=== PATIENT | female | born 1980 | race Caucasian/White ===

== ENCOUNTER 2021-09-07 11:05 | Emergency (ER) | payer OTHER ==
[2021-09-07] MEDS ORDERED: Zofran 4 MG/2 ML VIAL IV ONE (11:40)
[2021-09-07] MEDS ORDERED: Sodium Chloride 0.9% 1000 ML 1,000 ML IV STA (11:40)
[2021-09-07] MEDS ORDERED: Zofran 4 MG/2 ML VIAL ONE (11:49)
[2021-09-07] MEDS ORDERED: Sodium Chloride 0.9% 1000 ML 1,000 ML ONE (11:49)
--- NOTE | 2021-09-07 11:49 | ERPHSYRPT ---
- History of Present Illness Time Seen by Provider: 09/07/21 11:30 Source: patient Exam Limitations: no limitations Patient Subjective Stated Complaint: Pt states "I am vomiting, have a headache, belly pain, body aches." Triage Nursing Assessment: Pt presented alert and oriented X 3, skin pwd Pt ambulates with an upright steady gait, able to speak in clear full sentences pt in no aprpaent respiratory distress. Physician History: Patient is a 41-year-old female presents to emergency department for evaluation of nausea vomiting abdominal pain headache myalgias. Patient just returned from [place]. Patient is not vaccinated against COVID. Symptoms have been ongoing for approximately 1 day. Symptoms are mild to moderate in intensity. No specific worsening or improving factors. Vomit is nonbloody nonbilious. No trauma. No fever. Symptoms are moderate in intensity. No specific worsening improving factors. Patient otherwise healthy. She voices no other complaints or concerns at this time. Timing/Duration: today Severity: moderate Modifying Factors: Improves With: nothing Associated Symptoms: No shortness of breath, No diaphoresis, No cough, No fever, No loss of appetite, No syncope, No seizure, No weakness Allergies/Adverse Reactions: No Known Drug Allergies Allergy (Verified 09/07/21 11:18) Hx Tetanus, Diphtheria Vaccination/Date Given: Yes Hx Influenza Vaccination/Date Given: No Hx Pneumococcal Vaccination/Date Given: No Immunizations Up to Date: Yes Travel Risk - International Travel Have you traveled outside of the country in past 3 weeks: No - Coronavirus Screening Are you exhibiting any of the following symptoms?: Yes Symptoms: Vomiting/Diarrhea, Headaches/Body Aches/Fatigue Close contact with a COVID-19 positive Pt in past 14-21 Days: No - Vaccine Status Have you recieved a Covid-19 vaccination: No - Review of Systems Constitutional: No Symptoms, No Fever, No Chills Eyes: No Symptoms Ears, Nose, & Throat: No Symptoms Respiratory: No Symptoms, No Cough, No Dyspnea Cardiac: No Symptoms, No Chest Pain, No Edema, No Syncope Abdominal/Gastrointestinal: No Symptoms, No Abdominal Pain, No Nausea, No Vomiting, No Diarrhea Genitourinary Symptoms: No Symptoms, No Dysuria Musculoskeletal: No Symptoms, No Back Pain, No Neck Pain Skin: No Symptoms, No Rash Neurological: No Symptoms, No Dizziness, No Focal Weakness, No Sensory Changes Psychological: No Symptoms Endocrine: No Symptoms Hematologic/Lymphatic: No Symptoms Immunological/Allergic: No Symptoms All Other Systems: Reviewed and Negative - Past Medical History Pertinent Past Medical History: No - Past Surgical History Past Surgical History: Yes Other Surgical History: tubal - Social History Smoking Status: Former smoker Exposure to second hand smoke: Yes Drug Use: none Patient Lives Alone: No - Female History Hx Last Menstrual Period: 08/25/2021 Hx Now: No - Nursing Vital Signs Nursing Vital Signs: Initial Vital Signs Temperature 97.8 F 09/07/21 11:13 Pulse Rate 75 09/07/21 11:13 Respiratory Rate 20 09/07/21 11:13 Blood Pressure 118/71 09/07/21 11:13 O2 Sat by Pulse Oximetry 97 09/07/21 11:13 Pain Scale Pain Intensity 5 - Physical Exam General Appearance: no apparent distress, alert Eye Exam: PERRL/EOMI, eyes nml inspection Ears, Nose, Throat Exam: normal ENT inspection, TMs normal, pharynx normal, moist mucous membranes Neck Exam: normal inspection, non-tender, supple, full range of motion Respiratory Exam: normal breath sounds, chest tenderness, lungs clear, airway intact, No respiratory distress Cardiovascular Exam: regular rate/rhythm, normal heart sounds, normal peripheral pulses Gastrointestinal/Abdomen Exam: soft, normal bowel sounds, No tenderness, No mass Back Exam: normal inspection, normal range of motion, No CVA tenderness, No vert ebral tenderness Extremity Exam: normal inspection, normal range of motion, pelvis stable Neurologic Exam: alert, oriented x 3, cooperative, normal mood/affect, nml cerebellar function, nml station & gait, sensation nml, No motor deficits Skin Exam: normal color, warm, dry, No rash Lymphatic Exam: No adenopathy SpO2 Interpretation: normal SpO2: 97 O2 Delivery: Room Air - Course Nursing assessment & vital signs reviewed: No - CT Exams Abdomen/Pelvis CT Interpretation: Tele-radiologist Report (Left ovarian cyst, prominent uterus, hematuria, colon lithiasis, aortoiliac calcifications spine arthritis fecal stasis.) - Radiology Ultrasound Exam Gallbladder Ultrasound: discussed w/radiologist (Ultrasound gallbladder reveals cholelithiasis no cholecystitis) Pelvis Ultrasound: discussed w/radiologist (Ultrasound pelvis reveals a uterine fibroid.) Ordered Tests: Active Orders 24 hr Category Date Time Status IV Insertion STAT Care 09/07/21 11:40 Active ABDOMEN AND PELVIS W/0 CONTRAS [CT] Stat Exams 09/07/21 11:40 Completed GALLBLADDER [US] Stat Exams 09/07/21 14:40 Taken PELVIC [US] Stat Exams 09/07/21 14:40 Taken CBC W DIFF Stat Lab 09/07/21 11:30 Completed CMP Stat Lab 09/07/21 11:30 Completed CULTURE,URINE Stat Lab 09/07/21 11:45 Received HCG,QUALITATIVE URINE Stat Lab 09/07/21 11:47 Completed LIPASE Stat Lab 09/07/21 11:30 Completed TROPONIN Q3H Lab 09/07/21 11:30 Completed TROPONIN Q3H Lab 09/07/21 15:00 Completed TROPONIN Q3H Lab 09/07/21 17:45 Ordered TROPONIN Q3H Lab 09/07/21 20:45 Ordered TROPONIN Q3H Lab 09/07/21 23:45 Ordered UA W/RFX CULTURE Stat Lab 09/07/21 11:45 Completed Medication Summary Discontinued Medications Generic Name Dose Route Start Last Admin Trade Name Freq PRN Reason Stop Dose Admin Acetaminophen 975 mg 09/07/21 14:38 09/07/21 14:44 Acetaminophen 325 Mg Tablet PO 09/07/21 14:39 975 mg STAT STA Administration Acetaminophen Confirm 09/07/21 14:43 Acetaminophen 325 Mg Tablet Administered 09/07/21 14:44 Dose 975 mg .ROUTE .STK-MED ONE Sodium Chloride 1,000 mls @ 999 mls/hr 09/07/21 11:40 09/07/21 13:00 Sodium Chloride 0.9% 1000 Ml IV 09/07/21 12:40 Infused .Q1H1M STA Infusion Sodium Chloride Confirm 09/07/21 11:49 Sodium Chloride 0.9% 1000 Ml Administered 09/07/21 11:50 Dose 1,000 mls @ ud .ROUTE .STK-MED ONE Nicardipine HCl 25 mg/ Sodium 250 mls @ 0 mls/hr 09/07/21 15:45 Chloride IV 10/07/21 15:44 .Q0M PRN TITRATE FOR BLOOD PRESSURE Protocol Titrate Ondansetron HCl 4 mg 09/07/21 11:40 09/07/21 11:53 Ondansetron Hcl 4 Mg/2 Ml Vial IV 09/07/21 11:41 4 mg STAT ONE Administration Ondansetron HCl Confirm 09/07/21 11:49 Ondansetron Hcl 4 Mg/2 Ml Vial Administered 09/07/21 11:50 Dose 4 mg .ROUTE .STK-MED ONE Lab/Rad Data: Laboratory Result Diagrams 09/07/21 11:30 09/07/21 11:30 Laboratory Results 09/07/21 09/07/21 09/07/21 Range/Units 15:00 11:47 11:45 WBC (4.0-10.5) K/mm3 RBC (4.1-5.4) M/mm3 Hgb (12.0-16.0) gm/dl Hct (35-47) % MCV (78-100) fl MCH (26-32) pg MCHC (32-36) g/dl RDW (11.5-14.0) % Plt Count (150-450) K/mm3 MPV (7.5-11.0) fl Gran % (36.0-66.0) % Eos # (Auto) (0-0.5) Absolute Lymphs (auto) (1.0-4.6) Absolute Monos (auto) (0.0-1.3) Lymphocytes % (24.0-44.0) % Monocytes % (0.0-12.0) % Eosinophils % (0.00-5.0) % Basophils % (0.0-0.4) % Absolute Granulocytes (1.4-6.9) Basophils # (0-0.4) Sodium (137-145) mmol/L Potassium (3.5-5.1) mmol/L Chloride (98-107) mmol/L Carbon Dioxide (22-30) mmol/L Anion Gap (5-15) MEQ/L BUN (7-17) mg/dL Creatinine (0.52-1.04) mg/dL Estimated GFR ML/MIN Glucose (74-106) mg/dL Calcium (8.4-10.2) mg/dL Total Bilirubin (0.2-1.3) mg/dL AST (14-36) U/L ALT (0-35) U/L Alkaline Phosphatase (38-126) U/L Troponin I < 0.012 (0.000-0.034) ng/mL Serum Total Protein (6.3-8.2) g/dL Albumin (3.5-5.0) g/dL Lipase (23-300) U/L Urinalys Dipstick Clnc MAIN LAB Urine Color YELLOW (YELLOW) Urine Appearance SLIGHTLY CLOUDY (CLEAR) Urine pH 5.0 (5-6) Ur Specific Marceline >=1.030 (1.005-1.025) POC Urine Protein Conf 30 (Negative) Urine Ketones NEGATIVE (NEGATIVE) Urine Nitrite NEGATIVE (NEGATIVE) Urine Bilirubin NEGATIVE (NEGATIVE) Urine Urobilinogen 0.2 (0-1) mg/dL Urine Leukocytes NEGATIVE (NEGATIVE) Urine WBC (Auto) 3-5 (0-5) /HPF Urine RBC (Auto) 26-50 (0-2) /HPF U Epithel Cells (Auto) RARE (FEW) /HPF Urine Bacteria (Auto) RARE (NEGATIVE) /HPF Urine RBC LARGE (0-5) Javier/ul Urine Mucus (Auto) MODERATE (NEGATIVE) /HPF Ur Culture Indicated? YES Urine Glucose NEGATIVE (NEGATIVE) mg/dL Urine HCG, Qual NEGATIVE (Negative) Influenza Type A Ag (NEGATIVE) Influenza Type B Ag (NEGATIVE) RSV (PCR) (Negative) SARS-CoV-2 (PCR) (NEGATIVE) 09/07/21 09/07/21 09/07/21 Range/Units 11:45 11:30 11:30 WBC (4.0-10.5) K/mm3 RBC (4.1-5.4) M/mm3 Hgb (12.0-16.0) gm/dl Hct (35-47) % MCV (78-100) fl MCH (26-32) pg MCHC (32-36) g/dl RDW (11.5-14.0) % Plt Count (150-450) K/mm3 MPV (7.5-11.0) fl Gran % (36.0-66.0) % Eos # (Auto) (0-0.5) Absolute Lymphs (auto) (1.0-4.6) Absolute Monos (auto) (0.0-1.3) Lymphocytes % (24.0-44.0) % Monocytes % (0.0-12.0) % Eosinophils % (0.00-5.0) % Basophils % (0.0-0.4) % Absolute Granulocytes (1.4-6.9) Basophils # (0-0.4) Sodium 138 (137-145) mmol/L Potassium 4.4 (3.5-5.1) mmol/L Chloride 105 (98-107) mmol/L Carbon Dioxide 23 (22-30) mmol/L Anion Gap 14.4 (5-15) MEQ/L BUN 16 (7-17) mg/dL Creatinine 0.51 L (0.52-1.04) mg/dL Estimated GFR > 60.0 ML/MIN Glucose 97 (74-106) mg/dL Calcium 9.3 (8.4-10.2) mg/dL Total Bilirubin 0.60 (0.2-1.3) mg/dL AST 27 (14-36) U/L ALT 23 (0-35) U/L Alkaline Phosphatase 56 (38-126) U/L Troponin I < 0.012 (0.000-0.034) ng/mL Serum Total Protein 7.2 (6.3-8.2) g/dL Albumin 4.2 (3.5-5.0) g/dL Lipase 190 (23-300) U/L Urinalys Dipstick Clnc Urine Color (YELLOW) Urine Appearance (CLEAR) Urine pH (5-6) Ur Specific Marceline (1.005-1.025) POC Urine Protein Conf (Negative) Urine Ketones (NEGATIVE) Urine Nitrite (NEGATIVE) Urine Bilirubin (NEGATIVE) Urine Urobilinogen (0-1) mg/dL Urine Leukocytes (NEGATIVE) Urine WBC (Auto) (0-5) /HPF Urine RBC (Auto) (0-2) /HPF U Epithel Cells (Auto) (FEW) /HPF Urine Bacteria (Auto) (NEGATIVE) /HPF Urine RBC (0-5) Javier/ul Urine Mucus (Auto) (NEGATIVE) /HPF Ur Culture Indicated? Urine Glucose (NEGATIVE) mg/dL Urine HCG, Qual (Negative) Influenza Type A Ag NEGATIVE (NEGATIVE) Influenza Type B Ag NEGATIVE (NEGATIVE) RSV (PCR) NEGATIVE (Negative) SARS-CoV-2 (PCR) NEGATIVE (NEGATIVE) 09/07/21 Range/Units 11:30 WBC 5.9 (4.0-10.5) K/mm3 RBC 4.27 (4.1-5.4) M/mm3 Hgb 12.9 (12.0-16.0) gm/dl Hct 39.9 (35-47) % MCV 93.4 (78-100) fl MCH 30.2 (26-32) pg MCHC 32.3 (32-36) g/dl RDW 13.2 (11.5-14.0) % Plt Count 264 (150-450) K/mm3 MPV 9.7 (7.5-11.0) fl Gran % 65.6 (36.0-66.0) % Eos # (Auto) 0.12 (0-0.5) Absolute Lymphs (auto) 1.28 (1.0-4.6) Absolute Monos (auto) 0.62 (0.0-1.3) Lymphocytes % 21.6 L (24.0-44.0) % Monocytes % 10.5 (0.0-12.0) % Eosinophils % 2.0 (0.00-5.0) % Basophils % 0.3 (0.0-0.4) % Absolute Granulocytes 3.88 (1.4-6.9) Basophils # 0.02 (0-0.4) Sodium (137-145) mmol/L Potassium (3.5-5.1) mmol/L Chloride (98-107) mmol/L Carbon Dioxide (22-30) mmol/L Anion Gap (5-15) MEQ/L BUN (7-17) mg/dL Creatinine (0.52-1.04) mg/dL Estimated GFR ML/MIN Glucose (74-106) mg/dL Calcium (8.4-10.2) mg/dL Total Bilirubin (0.2-1.3) mg/dL AST (14-36) U/L ALT (0-35) U/L Alkaline Phosphatase (38-126) U/L Troponin I (0.000-0.034) ng/mL Serum Total Protein (6.3-8.2) g/dL Albumin (3.5-5.0) g/dL Lipase (23-300) U/L Urinalys Dipstick Clnc Urine Color (YELLOW) Urine Appearance (CLEAR) Urine pH (5-6) Ur Specific Marceline (1.005-1.025) POC Urine Protein Conf (Negative) Urine Ketones (NEGATIVE) Urine Nitrite (NEGATIVE) Urine Bilirubin (NEGATIVE) Urine Urobilinogen (0-1) mg/dL Urine Leukocytes (NEGATIVE) Urine WBC (Auto) (0-5) /HPF Urine RBC (Auto) (0-2) /HPF U Epithel Cells (Auto) (FEW) /HPF Urine Bacteria (Auto) (NEGATIVE) /HPF Urine RBC (0-5) Javier/ul Urine Mucus (Auto) (NEGATIVE) /HPF Ur Culture Indicated? Urine Glucose (NEGATIVE) mg/dL Urine HCG, Qual (Negative) Influenza Type A Ag (NEGATIVE) Influenza Type B Ag (NEGATIVE) RSV (PCR) (Negative) SARS-CoV-2 (PCR) (NEGATIVE) - Progress Progress: improved Progress Note: Urinalysis reveals hematuria. Patient states she is not currently on her menstrual period CT abdomen pelvis reveals a prominent uterus. Ultrasound of uterus and gallbladder recommended by radiologist.We ordered ultrasound of the uterus and gallbladder. Results pending. 09/07/21 14:42 Counseled pt/family regarding: lab results, diagnosis, need for follow-up, rad results - Departure Departure Disposition: Home Clinical Impression: Left ovarian cyst, Prominent uterus, Hematuria, Cholelithiasis, Aortoiliac calcifications, Arthritis of spine, Fecal stasis, Uterine fibroid, Abdominal pain, UTI (urinary tract infection) Condition: Stable Critical Care Time: No Referrals: MILI WALL [Primary Care Provider] - Follow up/PCP as directed MAGI ROY [ACTIVE STAFF] - Follow up/PCP as directed Additional Instructions: Discharge/Care Plan JUAN GONZALEZ was seen on 09/07/21 in the Emergency Room. The patient was counseled regarding Diagnosis,Lab results, Imaging studies, need for follow up and when to return to the Emergency Room. Prescriptions given: Discharge Note I have spoken with the patient and/or caregivers. I have explained the patient's condition, diagnosis and treatment plan based on the information available to me at this time. I have answered the patient's and/or caregiver's questions and addressed any concerns. The patient and/or caregivers have as good understanding of the patient's diagnosis, condition and treatment plan as can be expected at this point. The vital signs have been stable. The patient's condition is stable and appropriate for discharge from the emergency department. The patient will pursue further outpatient evaluation with the primary care physician or other designated or consulting physician as outlined in the discharge instructions. The patient and/or caregivers are agreeable to this plan of care and follow-up instructions have been explained in detail. The patient and/or caregivers have received these instruction. The patient/and or caregivers are aware that any significant change in condition or worsening of symptoms should prompt an immediate return to this or the closest emergency department or call 911. Prescriptions: Nitrofurantoin Macro 100 mg [Macrobid 100MG Capsule] 100 mg PO BID 7 Days #14 cap
[2021-09-07 11:52] LABS: Absolute Neutrophil Ct (ANC) 3.88 (1.4-6.9); Basophil (Absolute #) 0.02 (0-0.4); Eosinophil (Absolute #) 0.12 (0-0.5); Hematocrit 39.9 % (35-47); Hemoglobin 12.9 gm/dl (12.0-16.0); Lymphocyte (Absolute #) 1.28 (1.0-4.6); Lymphocytes % 21.6 % (24.0-44.0); Mean Cell Volume 93.4 fl (78-100); Mean Corpuscular Hemoglobin 30.2 pg (26-32); Mean Corpuscular Hgb Concent. 32.3 g/dl (32-36); Mean Platelet Volume 9.7 fl (7.5-11.0); Monocyte (Absolute #) 0.62 (0.0-1.3); Monocytes % 10.5 % (0.0-12.0); Neutrophil % 65.6 % (36.0-66.0); Platelet Count 264 K/mm3 (150-450); Red Blood Count 4.27 M/mm3 (4.1-5.4); Red Cell Distribution Width 13.2 % (11.5-14.0); White Blood Count 5.9 K/mm3 (4.0-10.5)
[2021-09-07 12:00] LABS: ALBUMIN 4.2 g/dL (3.5-5.0); ALKALINE PHOSPHATASE 56 U/L (38-126); ANION GAP 14.4 MEQ/L (5-15); BLOOD UREA NITROGEN 16 mg/dL (7-17); CHLORIDE 105 mmol/L (98-107); Calcium 9.3 mg/dL (8.4-10.2); Carbon Dioxide 23 mmol/L (22-30); Creatinine 1 0.51 mg/dL (0.52-1.04); EST GLOMERULAR FILTRATION RATE > 60.0 ML/MIN; Glucose 97 mg/dL (74-106); LIPASE 190 U/L (23-300); Potassium 4.4 mmol/L (3.5-5.1); SGOT/AST 27 U/L (14-36); SGPT/ALT 23 U/L (0-35); SODIUM 138 mmol/L (137-145); Total Protein 7.2 g/dL (6.3-8.2)
[2021-09-07 12:08] LABS: Appearance SLIGHTLY CLOUDY (CLEAR); Bilirubin NEGATIVE (NEGATIVE); Glucose NEGATIVE (NEGATIVE)
[2021-09-07 12:09] LABS: Dipstick done @ ? MAIN LAB; Ketones NEGATIVE (NEGATIVE); Nitrite NEGATIVE (NEGATIVE); Protein,Urine Dip 30 (Negative); RBC LARGE Ery/ul (0-5); Specific Gravity >=1.030 (1.005-1.025); Urobilinogen 0.2 mg/dL (0-1)
[2021-09-07 12:21] LABS: Epithelial Cells RARE /HPF (FEW); Mucus MODERATE /HPF (NEGATIVE); RBC 26-50 /HPF (0-2)
[2021-09-07 12:25] LABS: INFLUENZA A NEGATIVE (NEGATIVE); INFLUENZA B NEGATIVE (NEGATIVE); RESPIRATORY SYNCTIAL VIRUS NEGATIVE (Negative); SARS-CoV-2 Xpert Express NEGATIVE (NEGATIVE)
[2021-09-07 12:46] LABS: Bacteria RARE /HPF (NEGATIVE); Urine Cultured Indicated? YES
--- NOTE | 2021-09-07 14:20 | XRAY ---
Indication: Abdominal pain, nausea, vomiting, and diarrhea. Multiple contiguous images obtained through the abdomen and pelvis with IV contrast. Approximately 40 cc Isovue 370 contrast injected before IV site lost. Comparison: None Lung bases demonstrates minimal dependent atelectasis. Heart not enlarged. Noncontrasted stomach and bowel loops appear nonobstructed with normal appendix. Radiopacities throughout the colon presumed ingested medication/bismuth. Mild diffuse scattered colonic fecal debris greatest in the right hemicolon. 2.6 cm left ovary cyst. Prominent uterus with 7 mm fluid collection in the lower uterine segment. No free fluid/air. Gallbladder mildly distended with tiny dense gallstones in the dependent portion. Remaining liver, gallbladder, pancreas, spleen, adrenal glands, kidneys, ureters, bladder, and uterus unremarkable. Minimal aortoiliac calcifications are AAA. Osseous structures intact with L3 limbus vertebrae, moderate L3-L4 degenerative changes, and mild levorotoscoliosis centered at L3-L4. No ventral or inguinal hernias. Impression: 1. Mild distended gallbladder with tiny stones better evaluated with sonogram. 2. Prominent uterus with tiny endometrial fluid and 2.6 cm left ovary cyst. Pelvic sonogram may yield further information if clinically warranted. 3. Mild fecal stasis and chronic bony findings. 4. Remaining CT abdomen/pelvis with contrast exam is negative.
[2021-09-07] MEDS ORDERED: TYLENOL 325 MG PO STA (14:38)
[2021-09-07] MEDS ORDERED: TYLENOL 325 MG ONE (14:43)
[2021-09-07 15:40] VITALS: BP 117/85
[2021-09-07] MEDS ORDERED: CARDENE*** 25 MG in Sodium Chloride 0.9% 250 ML 240 ML IV PRN (15:45)
[2021-09-07 16:02] VITALS: PULSE 79; O2SAT 98
--- NOTE | 2021-09-07 16:41 | XRAY ---
Indication: Abdomen pain. Two-dimensional gallbladder sonogram performed. Comparison: None Gallbladder normally distended with a few gallstones, largest 2 cm. No abnormal gallbladder wall thickening or pericholecystic fluid. Common bile duct measures 5.4 mm. No intrahepatic biliary distention. Remaining visualized liver, pancreas, and right kidney are sonographically unremarkable. Impression: Cholelithiasis without cholecystitis or biliary distention.
--- NOTE | 2021-09-07 16:45 | XRAY ---
Indication: Prominent uterus with endometrial fluid and left ovary cyst on same-day CT abdomen/pelvis. Two-dimensional transabdominal pelvic sonogram performed. Comparison: None Uterus anteverted measuring 8.8 x 4.4 x 6.7 cm. 3.7 x 2.8 x 3.8 cm subserosal fundal fibroid posteriorly. Endometrial stripe measures 5.2 mm. Lower uterine segment demonstrates 1.2 cm nabothian cyst. No endometrial cavity mass or fluid collection. Left ovary measures 3.2 x 2.6 x 2.7 cm and demonstrates normal perfusion and a 2.1 cm simple cyst. Nonvisualization right ovary. No suspicious adnexal mass or free fluid. Impression: Fundal fibroid and nabothian cyst as detailed. Simple left ovary cyst. Nonvisualization right ovary.
== END 2021-09-07 16:01 | disposition home or self-care (01) ==
LOC: ED 11:05
DX: N39.0 Urinary tract infection, site not specified (principal); K80.20 Calculus of gallbladder without cholecystitis without obstruction; K59.89 Other specified functional intestinal disorders; N83.202 Unspecified ovarian cyst, left side; R31.9 Hematuria, unspecified; I70.0 Atherosclerosis of aorta; M47.9 Spondylosis, unspecified; D25.9 Leiomyoma of uterus, unspecified; R11.2 Nausea with vomiting, unspecified; R10.9 Unspecified abdominal pain; R51.9 Headache, unspecified; M79.10 Myalgia, unspecified site
CPT/HCPCS: 0241U; 36000; 36415; 74176; 76705; 76856; 80053; 81015; 83690; 84484; 84703; 85025; 87086; 96360; 96374; 99284; J2405; A9270-GY

== ENCOUNTER 2022-06-22 10:38 | Day surgery (SDC) | payer OTHER ==
[2022-06-22] MEDS ORDERED: LIDOCAINE HCL 2% 100 MG/5 ML IJ ONE (10:39)
[2022-06-22] MEDS ORDERED: Decadron 4 MG INJ IV ONE (10:39)
[2022-06-22] MEDS ORDERED: DIPRIVAN 200 MG/20 ML IV ONE (13:12)
[2022-06-22] MEDS ORDERED: Lactated Ringers 1,000 ML IV ONE (13:31)
--- NOTE | 2022-06-22 14:16 | XRAY ---
Indication: Right C2-C5 MBB. Intraoperative fluoroscopy provided for 19 seconds. 3 digital spot image submitted for interpretation demonstrates posterior needle tips projecting over the expected right C2-C5 nerve roots. Correlate with intraoperative findings/report.
--- NOTE | 2022-06-22 14:18 | XRAY ---
19 seconds of fluoroscopy was used in surgery for a right C2-C5 MBB.
== END 2022-06-22 13:45 | disposition home or self-care (01) ==
LOC: SDC-PAIN 10:38
PROVIDERS: ATTEND Psychiatry & Neurology Pain Medicine
DX: M47.812 Spondylosis without myelopathy or radiculopathy, cervical region (principal); Z79.899 Other long term (current) drug therapy
CPT/HCPCS: 64490; 64491; 72040; 77002; 81025; J1100; J2704

== ENCOUNTER 2022-08-03 10:56 | Day surgery (SDC) | payer OTHER ==
[2022-08-03] MEDS ORDERED: BUPIVACAINE 0.5% VIAL IJ ONE (10:57)
[2022-08-03] MEDS ORDERED: DIPRIVAN 200 MG/20 ML IV ONE (12:26)
[2022-08-03] MEDS ORDERED: Versed 2 MG/2 ML Injection ONE (12:31)
[2022-08-03] MEDS ORDERED: SUBLIMAZE 100 MCG/2 ML ONE (12:32)
[2022-08-03] MEDS ORDERED: Lactated Ringers 1,000 ML IV ONE (13:19)
--- NOTE | 2022-08-03 13:53 | XRAY ---
Indication: Right C2-C5 MBB. Intraoperative fluoroscopy provided for 24 seconds. 2 digital spot image submitted for interpretation demonstrates posterior needle tips projecting over the expected right C2-C5 nerve roots. Correlate with intraoperative findings/report.
--- NOTE | 2022-08-03 15:27 | XRAY ---
24 seconds of fluoroscopy was used in surgery for a right C2-C5 MBB.
== END 2022-08-03 13:05 | disposition home or self-care (01) ==
LOC: SDC-PAIN 10:56
PROVIDERS: ATTEND Psychiatry & Neurology Pain Medicine
DX: M47.812 Spondylosis without myelopathy or radiculopathy, cervical region (principal); Z79.899 Other long term (current) drug therapy
CPT/HCPCS: 64490; 64491; 64492; 72040; 77002; 81025; J2250; J2704; J3010

== ENCOUNTER 2022-08-24 13:43 | Day surgery (SDC) | payer OTHER ==
[2022-08-24] MEDS ORDERED: Decadron 4 MG INJ IV ONE (13:44)
[2022-08-24] MEDS ORDERED: BUPIVACAINE 0.5% VIAL IJ ONE (13:44)
[2022-08-24] MEDS ORDERED: LIDOCAINE HCL 1% 50 MG/5 ML VL PF IJ ONE (13:44)
[2022-08-24 14:31] LABS: HCG URINE TEST NEGATIVE (NEGATIVE)
[2022-08-24] MEDS ORDERED: DIPRIVAN 200 MG/20 ML IV ONE ×2 (15:15→15:21)
[2022-08-24] MEDS ORDERED: Versed 2 MG/2 ML Injection ONE (15:21)
[2022-08-24] MEDS ORDERED: Lactated Ringers 1,000 ML IV ONE (16:18)
--- NOTE | 2022-08-24 16:39 | XRAY ---
Indication: Right C2-C5 RFA. Intraoperative fluoroscopy provided for 23 seconds. Single lateral digital spot image submitted for interpretation demonstrates posterior needle tips projecting over the presumed right C2-C5 nerve roots. Correlate with intraoperative findings/report.
--- NOTE | 2022-08-24 16:43 | XRAY ---
23 seconds of fluoroscopy was used in surgery for a right C2-C5 RFA.
== END 2022-08-24 15:55 | disposition home or self-care (01) ==
LOC: SDC-PAIN 13:43
PROVIDERS: ATTEND Psychiatry & Neurology Pain Medicine
DX: M47.812 Spondylosis without myelopathy or radiculopathy, cervical region (principal)
CPT/HCPCS: 36415; 64633; 64634; 72040; 77002; 81025; J1100; J2001; J2250; J2704